=== PATIENT | female | born 1970 | race Two or more races ===

== ENCOUNTER 2021-10-19 17:35 | Emergency (ER) | payer MEDICAID, OTHER ==
[~2021-10-19] VITALS: Ht 167.6 cm; Wt 86.2 kg
[2021-10-19] MEDS ORDERED: BACL10TA PO (20:51)
[2021-10-20 00:54] VITALS: BP 149/95
== END 2021-10-20 01:00 | disposition home or self-care (01) ==
LOC: ER 17:35
DX: S80.251A Superficial foreign body, right knee, initial encounter (principal); S83.91XA Sprain of unspecified site of right knee, initial encounter; R51.9 Headache, unspecified; W18.39XA Other fall on same level, initial encounter; Y93.89 Activity, other specified; Y92.89 Other specified places as the place of occurrence of the external cause; Y99.8 Other external cause status
CPT/HCPCS: 73560